=== PATIENT | female | born 1965 | race Caucasian/White ===

== ENCOUNTER 2016-09-12 08:49 | Inpatient (IN) | payer BC, OTHER ==
[~2016-09-12] VITALS: Ht 172.7 cm; Wt 126.0 kg
[~2016-09-12 08:49] MED LIST: LISI20TA55 PO; OXYC-57 PO; PANT40TA PO
[2016-09-12] MEDS ORDERED: DILTIAZEM HCL 5 MG/ML 5 ML VIAL IV STA ×2 (09:15→09:36)
[2016-09-12] MEDS ORDERED: DILTIAZEM BOLUS / DRIP IV STA (09:15)
[2016-09-12] MEDS ORDERED: ONDANSETRON INJ 2 MG/ML 2 ML VIAL IV STA (09:15)
[2016-09-12] MEDS ORDERED: SODIUM CHLORIDE 0.9% 1000ML 1,000 ML IV STA (09:15)
[2016-09-12] MEDS ORDERED: ADENOSINE IV SOLN 3 MG/ML 2 ML VIAL ONE (09:18)
[2016-09-12] MEDS ORDERED: ONDANSETRON INJ 2 MG/ML 2 ML VIAL ONE (09:19)
[2016-09-12] MEDS ORDERED: DILTIAZEM HCL INJ 125 MG in DEXTROSE 5% 100ML IV PRN (09:30)
[2016-09-12 09:32] LABS: HEMATOCRIT 44.6 % (37-47); MEAN CORPUSCULAR HEMOGLOBIN 30.3 pg (25-34); MEAN CORPUSCULAR HGB CONC 35.7 g/dl (32-36); MEAN PLATELET VOLUME 11.5 fL (7.4-10.4); PLATELET COUNT 110 K/uL (130-400); RED BLOOD COUNT 5.25 M/uL (4.2-5.4)
[2016-09-12 09:42] LABS: PARTIAL THROMBOPLASTIN RATIO 0.9; PROTHROMBIN TIME (PATIENT) 10.5 SECONDS (9.0-12.0)
[2016-09-12 09:50] LABS: BUN/CREATININE RATIO 13.4 (10-20); CALCIUM 8.4 mg/dl (8.5-10.1); POTASSIUM 2.7 mmol/L (3.5-5.1)
[2016-09-12 09:58] LABS: BASO ABS # 0.05 K/uL (0-0.2); BASOPHIL % 0.9 %; COMPLETE YES; EOSINOPHIL % 5.3 %; LYMPH ABS # 0.86 K/uL (1.2-3.4); NEUTROPHILS % 39.9 %; VARIANT LYM ABS # 1.97 K/uL; VARIANT LYMPHOCYTE % 34.5 %
--- NOTE | 2016-09-12 09:59 | DIAGNOSTIC IMAGING REPORT ---
CHEST ONE VIEW PORTABLE CLINICAL HISTORY: CHEST PAIN dyspnea COMPARISON STUDY: 06/26/2011 FINDINGS: Lungs are clear. Diaphragms smooth. No evidence for cardiac enlargement. IMPRESSION: Negative chest. Electronically signed by: Man Scott M.D. 09/12/2016 9:58 AM Dictated Date/Time: 09/12/2016 9:58 AM
[2016-09-12 10:10] LABS: CKMB/CK RATIO 0.4 (0-3.0); THYROID STIMULATING HORMONE 1.06 uIu/ml (0.300-4.500)
[2016-09-12] MEDS ORDERED: ASPIRIN 81 MG CHEW PO STA (10:15)
[2016-09-12] MEDS ORDERED: ALUMINUM/MAGNESIUM/SIMETH (MAALOX MAX) 30 ML UDC PO PRN (10:30)
[2016-09-12] MEDS ORDERED: METOPROLOL TARTRATE 1 MG/ML VIAL IV PRN (10:30)
[2016-09-12 10:50] LABS: MANUAL MICROSCOPIC REQUIRED? NO; URINE APPEARANCE CLEAR (CLEAR); URINE BILIRUBIN NEG (NEG); URINE COLOR YELLOW; URINE NITRITE NEG (NEG); URINE PH 7.5 (4.5-7.5); UROBILINOGEN NEG (NEG)
[2016-09-12] MEDS ORDERED: MAGNESIUM SULFATE 1GM / D5W 1 GM BAG IV SCH (11:00)
[2016-09-12] MEDS ORDERED: LORAZEPAM 0.5 MG TAB PO PRN (11:00)
[2016-09-12] MEDS ORDERED: MAGNESIUM SULFATE 1GM / D5W 1 GM in PREMIXED IN D5W 100 ML IV SCH (11:00)
[2016-09-12 11:01] VITALS: O2SAT 97; Ht 172.7 cm; Wt 126.0 kg
[2016-09-12 11:02] LABS: SULFASALICYLIC ACID NEG (NEG)
[2016-09-12 11:03] LABS: REVIEW REQ? NO
[2016-09-12 11:07] VITALS: O2SAT 98
[2016-09-12 11:14] LABS: ESTIMATED AVERAGE GLUCOSE 100 mg/dl; HA1C FLAG Normal (Normal)
--- NOTE | 2016-09-12 11:19 | EMERGENCY ROOM VISIT NOTE ---
History First contact with patient: 09:03 Chief Complaint: DIZZY Stated Complaint: DIZZY, VOMITING, CHILLS/SWEATS Nursing Triage Summary: pt here with dizziness, nausea, chills since this am. worse with movement. History of Present Illness The patient is a 50 year old female who presents to the Emergency Room with complaints of sudden onset of dizziness, nausea, chills and sweats. The patient 's symptoms developed while she was driving to work this morning. Patient reports that she had to pull off of the road because of the symptoms. The patient did not notice any chest tightness, shortness of breath, back pain, neck pain or headache. The patient has never had any similar episodes in the past. She does report having some generalized chest discomfort last week that lasted approximately 4 hours then resolved. She denies any cardiopulmonary history or thyroid disease. Patient does have a history of hypertension and takes hydrochlorothiazide Her father does have a history of coronary artery disease. The patient denies any recent illness. Review of Systems HEENT: Denies visual problems, hearing loss, tinnitus. Denies difficulty swallowing or oral lesions. PULMONARY: Denies cough, shortness of breath, sputum production or hemoptysis. CARDIOVASCULAR: Denies chest pain, palpitations, dyspnea on exertion, orthopnea or peripheral edema. GASTROINTESTINAL: Denies diarrhea, constipation, nausea, vomiting, or abdominal pain. GENITOURINARY: Denies dysuria, frequency, urgency or nocturia. NEUROLOGIC: Denies history of epilepsy, CVA, TIA or chronic headaches. MUSCULOSKELETAL: Denies history of joint tenderness/swelling. SKIN: Denies rashes or lesions. PSYCHIATRIC: Denies history of depression or mental illness. ENDOCRINE: Denies history of diabetes or thyroid disorders. Past Medical/Surgical History Medical Problems: (1) Abdominal hysterectomy (2) Atrial fibrillation with RVR (3) Menorrhagia (4) Salpingo-oophorectomy Social History Smoking Status: Former Smoker Alcohol Use: none Drug Use: none Marital Status: Occupation Status: employed Current/Historical Medications Scheduled Lisinopril/Hctz (Prinzide 20-25MG), 1 TAB PO DAILY Pantoprazole (Protonix), 40 MG PO DAILY Scheduled PRN Oxycodone/Acetaminophen 5MG/325MG (Percocet 5MG/325MG), 1-2 TAB PO Q4-6HR PRN PRN Allergies Coded Allergies: Penicillins (Verified Allergy, Intermediate, 09/12/16) Physical Exam Vital Signs Date Time Temp Pulse Resp B/P Pulse Ox O2 Delivery O2 Flow Rate FiO2 09/12/16 10:21 66 09/12/16 09:58 71 09/12/16 09:27 120 18 185/141 97 Room Air 09/12/16 09:20 97 Nasal Cannula 2.0 09/12/16 09:19 137 20 215/178 97 Nasal Cannula 2.0 09/12/16 09:15 150 09/12/16 09:10 97 Nasal Cannula 2.0 09/12/16 08:54 36.5 69 18 211/112 97 Room Air Physical Exam CONSTITUTIONAL: Obese female, alert and oriented X 3. The patient is sitting in the bed with her eyes shut. She is mildly diaphoretic. HEENT: Normocephalic, atraumatic. Pupils equal, round and reactive. Ears and nares are clear. OROPHARYNX: Tongue is midline. No tonsillar hypertrophy or exudates. NECK: Full active range of motion without discomfort. No JVD or carotid bruits. RESPIRATORY: Clear to auscultation bilaterally with no wheezing, crackles, rhonchi or stridor. CARDIOVASCULAR: Tachycardic with no appreciable murmurs, rubs or gallops. GASTROINTESTINAL: Bowel sounds present in all quadrants. Abdomen is soft and nontender to palpation. No hepatosplenomegaly. Negative CVA tenderness. MUSCULOSKELETAL: Full range of motion of all joints without discomfort. INTEGUMENTARY: No rash or other significant dermatologic conditions noted. HEMATOLOGIC: No ecchymosis or petechiae noted. NEUROLOGIC: Cranial nerves II-XII grossly intact. No focal neurologic deficits noted. Medical Decision & Procedures ER Provider Diagnostic Interpretation: My interpretation of an initial ECG shows a possible atrial fibrillation with rapid ventricular response at 152 bpm. She also has ST depression in inferior and anterolateral leads. Repeat ECG approximately 50 minutes later showed a conversion to a normal sinus rhythm of 64 bpm. She still has some mild ST depression fear and anterolateral leads with inverted T waves. Prolonged QT is also noted. No prior ECGs are available for comparison. My interpretation of a portable chest x-ray does not show any consolidations, pneumothorax, widened mediastinum or obvious cardiomegaly. Radiologist report is as follows: CHEST ONE VIEW PORTABLE CLINICAL HISTORY: CHEST PAIN dyspnea COMPARISON STUDY: 06/26/2011 FINDINGS: Lungs are clear. Diaphragms smooth. No evidence for cardiac enlargement. IMPRESSION: Negative chest. Laboratory Results 09/12/16 09:16 Red Blood Count 5.25, Mean Corpuscular Volume 85.0, Mean Corpuscular Hemoglobin 30.3, Mean Corpuscular Hemoglobin Concent 35.7, Mean Platelet Volume 11.5 09/12/16 09:16 Test 09/12/16 09:16 09/12/16 09:17 09/12/16 10:20 White Blood Count 5.70 K/uL (4.8-10.8) Red Blood Count 5.25 M/uL (4.2-5.4) Hemoglobin 15.9 g/dL (12.0-16.0) Hematocrit 44.6 % (37-47) Mean Corpuscular Volume 85.0 fL (80-100) Mean Corpuscular Hemoglobin 30.3 pg (25-34) Mean Corpuscular Hemoglobin Concent 35.7 g/dl (32-36) Platelet Count 110 K/uL (130-400) Mean Platelet Volume 11.5 fL (7.4-10.4) RDW Standard Deviation 39.1 fL (36.4-46.3) RDW Coefficient of Variation 12.7 % (11.5-14.5) Neutrophils % (Manual) 39.9 % Lymphocytes % (Manual) 15.0 % Variant Lymphocytes % (manual) 34.5 % Monocytes % (Manual) 4.4 % Eosinophils % (Manual) 5.3 % Basophils % (Manual) 0.9 % Neutrophils # (Manual) 2.27 K/uL (1.4-6.5) Total Absolute Neutrophils 2.27 K/uL (1.4-6.5) Lymphocytes # (Manual) 0.86 K/uL (1.2-3.4) Absolute Variant Lymphocytes 1.97 K/uL Total Absolute Lymphocytes 2.82 K/uL (1.2-3.4) Monocytes # (Manual) 0.25 K/uL (0.11-0.59) Eosinophils # (Manual) 0.30 K/uL (0-0.5) Basophils # (Manual) 0.05 K/uL (0-0.2) Red Blood Cell Morphology Unremarkable Prothrombin Time 10.5 SECONDS (9.0-12.0) Prothromb Time International Ratio 1.0 (0.9-1.1) Activated Partial Thromboplast Time 23.5 SECONDS (21.0-31.0) Partial Thromboplastin Ratio 0.9 Anion Gap 13.0 mmol/L (3-11) Est Creatinine Clear Calc Drug Dose 97.2 ml/min Estimated GFR () 77.2 Estimated GFR (Non- 66.6 BUN/Creatinine Ratio 13.4 (10-20) Calcium Level 8.4 mg/dl (8.5-10.1) Magnesium Level 2.0 mg/dl (1.8-2.4) Total Bilirubin 3.5 mg/dl (0.2-1) Direct Bilirubin 0.4 mg/dl (0-0.2) Aspartate Amino Transf (AST/SGOT) 31 U/L (15-37) Alanine Aminotransferase (ALT/SGPT) 38 U/L (12-78) Alkaline Phosphatase 45 U/L (45-117) Total Creatine Kinase 691 U/L (26-192) Creatine Kinase MB 2.6 ng/ml (0.5-3.6) Creatine Kinase MB Ratio 0.4 (0-3.0) Troponin I < 0.015 ng/ml (0-0.045) Total Protein 7.2 gm/dl (6.4-8.2) Albumin 4.3 gm/dl (3.4-5.0) Lipase 133 U/L (73-393) Thyroid Stimulating Hormone (TSH) 1.060 uIu/ml (0.300-4.500) Bedside D-Dimer 76 ng/mlFEU (0-450) Bedside Troponin I 0.000 ng/ml (0-0.045) DK-Znp-Y-Type Natriuretic Peptide 30 pg/ml (0-450) Urine Color YELLOW Urine Appearance CLEAR (CLEAR) Urine pH 7.5 (4.5-7.5) Urine Specific [place] 1.020 (1.000-1.030) Urine Protein NEG (NEG) Urine Glucose (UA) 1+ (NEG) Urine Ketones TRACE (NEG) Urine Occult Blood NEG (NEG) Urine Nitrite NEG (NEG) Urine Bilirubin NEG (NEG) Urine Urobilinogen NEG (NEG) Urine Leukocyte Esterase NEG (NEG) The above labs were reviewed. Potassium is 2.7. The patient is not anemic. There is no leukocytosis. Initial coagulation studies are normal. Point of care d-dimer, troponin and BNP are also normal. TSH is normal. Urinalysis shows no evidence for infection. Urine drug screen was pending at the time of dictation. Medications Administered Medications (Trade) Dose Ordered Sig/Sharon Route Start Time Stop Time Status Last Admin Dose Admin Ondansetron HCl 4 mg 4 mg STK-MED ONCE .ROUTE 09/12/16 09:19 09/12/16 09:20 DC 09/12/16 09:17 4 MG Sodium Chloride (Nss 1000ml) 1,000 ml @ 999 mls/hr Q1H1M STAT IV 09/12/16 09:15 09/12/16 10:15 DC 09/12/16 09:15 999 MLS/HR Diltiazem HCl (Cardizem Inj) 10 mg NOW STAT IV 09/12/16 09:15 09/12/16 09:18 DC 09/12/16 09:23 10 MG Diltiazem HCl (Cardizem Inj) 20 mg NOW STAT IV 09/12/16 09:36 09/12/16 09:38 DC 09/12/16 09:45 20 MG ED Course Patient history and physical exam were performed. Nurse's notes were reviewed. Initial last signs were reviewed, showing a blood pressure of 211/112. O2 saturation is 97% on room air. Her initial pulse rate was in the 160s upon my presentation. My interpretation of an ECG shows a possible atrial fibrillation with rapid ventricular response. She also has some ST depression in inferior and anterolateral leads. ECG was initially reviewed with Dr. Wheeler, ED attending physician, who suggested treatment for atrial fibrillation. IV access was immediately established, and labs were drawn. The patient was hydrated with a liter normal saline. She was initially given Cardizem 20 mg slow IV push with a slight decrease of her heart rate and blood pressure. She was then administered an additional Cardizem 20 mg slow IV push, and converted to a normal sinus rhythm. Her blood pressure continued to remain elevated. The patient reported that her symptoms were improving. Labs were reviewed to show a moderate hypokalemia with a potassium of 2.7. Remaining labs are otherwise normal. It is noted that her point of care troponin, d-dimer and BNP were also normal. A repeat ECG still showed concerns for ischemic changes. Patient was administered aspirin [address] Wheeler agreed that hospitalist evaluation was warranted. The case was then further discussed with the [facility] hospitalist service. Please see their dictation for further treatment and final disposition. Medical Decision Patient presents with abrupt onset of symptoms concerning for cardiopulmonary etiology. Her ECG reveals an atrophic relation with rapid ventricular response. She spotted nicely to Cardizem IV push. She did not require a Cardizem drip. The patient does have a Ronak score of 1 given her history of hypertension. The patient was administered aspirin while in the emergency department. With her abnormal ECG, I do feel that further cardiology workup and telemetry with repeat serial cardiac isoenzymes will be necessary. The patient does not have any lab work that would suggest infectious etiology. She is euthyroid. She is not anemic. Urinalysis is not suggestive of infection. Urine drug screen is currently pending to rule out stimulant cause of her symptoms. Impression Primary Impression: Atrial fibrillation with RVR Additional Impression: Hypertension Departure Information Referrals Jeannette Parks D.O. (PCP) Forms HOME CARE DOCUMENTATION FORM, IMPORTANT VISIT INFORMATION Patient Instructions [facility] Problem Qualifiers
[2016-09-12 11:31] LABS: BENZODIAZEPINE, URINE NEG (NEG); COCAINE,URINE NEG (NEG); PHENCYCLIDINE, URINE NEG (NEG)
--- NOTE | 2016-09-12 11:38 | HISTORY & PHYSICAL EXAMINATION ---
DATE OF ADMISSION: 09/12/2016 CHIEF COMPLAINT: Dizziness. ADMITTING DIAGNOSES: Atrial fibrillation, rapid ventricular response. HISTORY OF PRESENT ILLNESS: Ms. Nick is a 50-year-old female presented with episodes of dizziness while driving from dropping her son off to her work. She typically works at [employer] in [employer] department. The patient has stopped twice on the way to work because she felt too dizzy to drive. When her picked her up, she felt nauseous and almost threw up in the back seat of the car. When the patient arrived in the ER, she was in atrial fibrillation and RVR. Initially it was a narrow complex tachyarrhythmia and adenosine was administered. This did not seem to quell the arrhythmia and she was given diltiazem bolus of 40 reporting to the ER doctor, which converted her back to sinus rhythm. Her initial evaluation, she was found to be hypokalemic with potassium of 2.7 and magnesium is currently pending. She was not hyperthyroid. She has elevated bilirubin but a history of Gilbert's and she has an elevated glucose 185. The patient denies excessive stimulant use. Does not take any over the counter medicines except for Ocuvite and glutamine. She denies any drug use. She is on a combination antihypertensive diuretic which may explain her hyperkalemia. She is amenable to admission. She currently is without discomfort in sinus rhythm in the 60s and 70s, although she has some residual lateral T-wave inversions seen on her EKG after conversion to sinus rhythm. PAST MEDICAL HISTORY: For total abdominal hysterectomy in 2011, hypertension, GERD, previous history of Gilbert's disease. MEDICATIONS: Prinzide 20/25 once a day, Protonix daily, Ocuvite and glutamine. SOCIAL HISTORY: She quit smoking in 2011. Does not drink alcohol. Works for [employer]. She has 2 children. FAMILY HISTORY: Positive for coronary disease in his father who had a stent in his late 50s, breast cancer. She has diabetes in her grandparents. She, however herself, did have gestational diabetes which does place her at risk for diabetes. REVIEW OF SYSTEMS: Ten systems were reviewed and are negative. The patient does urinate a lot but blames it on the water pill, part of her antihypertensives. PHYSICAL EXAMINATION: GENERAL: She is a pleasant female. She is morbidly obese with a BMI of 42.9. HEAD, EYES, EARS, NOSE, AND THROAT: PERRL, EOMI. Her conjunctivae are not icteric. Oropharynx is clear. NECK: Without lymphadenopathy, JVD. Trachea midline. HEART: Regular without murmurs, clicks, rubs or gallops. LUNGS: Clear without wheezes or crackles. ABDOMEN: Normoactive bowel sounds, soft, nontender, no abdominal bruits. EXTREMITIES: Without cyanosis, clubbing or edema. SKIN EXAMINATION: Without lesions, growths, bruises or bleeding. NEUROLOGICALLY: She is awake, alert and appropriate. Cranial nerves II-XII are intact. Equal symmetrical strength and sensation in upper and lower extremities. VITAL SIGNS: Her temperature is 36.5. Her heart rate now is 66. Her respiration rate 18, BP is elevated at 185/141, O2 sats 97 on room air. LABORATORY DATA: White count of 5, H\T\H 15 and 44, platelet count 110, BUN and creatinine 13 and 1.0. Potassium 2.7, magnesium pending. Glucose 185, bili 3.5. TSH is normal. Her initial cardiac enzymes, her troponin is currently pending but the point of care was 0. Her total CK was slightly up at 691. She has a pending A1c and toxicology panel. Her chest x-ray is unremarkable. Her EKG initially showed narrow complex irregular heart rhythm with tachyarrhythmia. Her post-conversion shows lateral T-wave inversions but sinus rhythm. ASSESSMENT: A 50-year-old female with atrial fibrillation, rapid ventricular response. She did have a little chest discomfort 1 week prior. PLAN: The patient will be put on telemetry unit. Serial enzymes will be undertaken. With her hypertension we will add metoprolol for blood pressure control, add tartrate 25 b.i.d. Echocardiogram will be obtained to look for structural heart disease. Her magnesium will be repleted and a cardiology consult will be undertaken the carlos to determine how to proceed forward, although she has a KIRSTEN score of 1. Hypokalemia will be repleted, could be the hydrochlorothiazide in her diuretic. This will be held and magnesium will be followed. Regarding her Gilbert's disease, at one point in time she was discussed about having fatty liver. She is morbidly obese. Will check a lipid panel for risk stratification of coronary artery disease. Regarding her elevated blood glucose on presentation, hemoglobin A1c will be checked to determine if she is glucose intolerance or does quality for diabetes. Because of discomfort last week and her family history of heart disease, cardiology will help determine if her risk stratification method needs to be employed prior to her leaving the hospital. Deep venous thrombosis prevention is early ambulation.
[2016-09-12 11:50] LABS: ZZUR CULT IF INDIC CLEAN CATCH NO
[2016-09-12] MEDS: POTASSIUM CHLORIDE 10 MEQ / 100ML WTR IV SCH ×3 (12:00→13:00)
[2016-09-12 12:18] VITALS: BP 177/87; PULSE 62; TEMP 36.5; O2SAT 97
[2016-09-12] MEDS: LISINOPRIL 20 MG TAB PO SCH (13:30)
[2016-09-12] MEDS: METOPROLOL TARTRATE 25 MG TAB PO SCH ×2 (13:31→20:39)
[2016-09-12] MEDS: POTASSIUM CHLORIDE INJ 40 MEQ in SODIUM CHLORIDE 0.9% 1000ML 1,000 ML IV SCH ×2 (13:31→20:39)
[2016-09-12] MEDS: POTASSIUM CHLR 10 MEQ / WTR 10 MEQ in PREMIXED WATER 100 ML IV SCH ×2 (13:33→14:56)
[2016-09-12 15:20] VITALS: BP 151/87; PULSE 61; TEMP 37.2; O2SAT 96
--- NOTE | 2016-09-12 16:25 | ECHOCARDIOGRAM REPORT ---
*NOTICE TO RECEIVING [employer] This information is strictly Confidential and protected under [place] law. [place] law prohibits you from making any further disclosure of this information unless further disclosure is expressly permitted by the written consent of the person to whom it pertains or is authorized by law. A general authorization for the release of medical or other information is not sufficient for this purpose. Hospital accepts no responsibility if the information is made available to any other person, INCLUDING THE PATIENT. Interpretation Summary * Name: NETTE ARREGUIN Study Date: 09/12/2016 12:50 PM BP: 177/87 mmHg * Patient Location: [facility] HR: 62 * : 1965 (M/d/yyyy) Gender: Female Height: 67 in * Age: 50 yrs Ethnicity: CA Weight: 282 lb * Ordering Physician: Dre Miramontes * Performed By: Kathleen Huber RDCS * * Reason For Study: Atrial fibrillation * BSA: 2.3 m2 * Normal biventricular systolic function. * Moderate concentric left ventricular hypertrophy. * Left ventricular diastolic dysfunction. * Mild left atrial dilatation. * Trace tricuspid and pulmonic regurgitation. Procedure Details * A complete two-dimensional transthoracic echocardiogram was performed (2D, M-mode, Doppler and color flow Doppler). Left Ventricle * The left ventricle is normal in size. * There is moderate concentric left ventricular hypertrophy. * Ejection Fraction = 65-70%. * Left ventricular systolic function is normal. * A full diastolic examination was done with clinical findings of Class I diastolic dysfunction. * The left ventricular wall motion is normal. Right Ventricle * The right ventricle is normal in size and function. * The right ventricular systolic function is normal as assessed by tricuspid annular plane systolic excursion (TAPSE) (normal >1.5 cm). Atria * The left atrium is mildly dilated. * Right atrial size is normal. Mitral Valve * The mitral valve is normal. * There is no mitral valve stenosis. * There is no mitral regurgitation noted. Tricuspid Valve * The tricuspid valve is normal. * There is no tricuspid stenosis. * There is trace tricuspid regurgitation. Aortic Valve * The aortic valve opens well. * The aortic valve is trileaflet. * Aortic stenosis is absent. * No aortic regurgitation is present. Pulmonic Valve * The pulmonic valve is not well seen, but is grossly normal. * The pulmonary valve is inadequately visualized, but the Doppler data is adequate for interpretation. * There is no pulmonic valvular stenosis. * Trace pulmonic valvular regurgitation. Great Vessels * The aortic root is normal size. Pericardium/Pleural * There is no pericardial effusion. Great Vessels * Normal inferior vena cava diameter and respiratory variation suggests normal central venous pressure. MMode 2D Measurements and Calculations IVSd 1.6 cm IVSs 1.9 cm LVIDd 4.5 cm LVIDs 2.9 cm LVPWd 1.5 cm LVPWs 1.9 cm IVS/LVPW 1.1 FS 36.6 % EDV(Teich) 94.1 ml ESV(Teich) 31.5 ml EF(Teich) 66.5 % EDV(cubed) 93.3 ml ESV(cubed) 23.8 ml EF(cubed) 74.5 % % IVS thick 16.0 % % LVPW thick 32.7 % LV mass(C)d 291.4 grams LV mass(C)dI 124.5 grams/m\S\2 LV mass(C)s 230.9 grams LV mass(C)sI 98.7 grams/m\S\2 CO(Teich) 3.1 l/min CI(Teich) 1.3 l/min/m\S\2 SV(Teich) 62.6 ml SI(Teich) 26.7 ml/m\S\2 CO(cubed) 3.5 l/min CI(cubed) 1.5 l/min/m\S\2 SV(cubed) 69.5 ml SI(cubed) 29.7 ml/m\S\2 Ao root diam 3.6 cm Ao root area 10.0 cm\S\2 ACS 2.4 cm LA dimension 4.4 cm asc Aorta Diam 3.6 cm LA/Ao 1.2 LVOT diam 2.2 cm LVOT area 3.7 cm\S\2 LVAd ap4 38.4 cm\S\2 LVLd ap4 9.3 cm EDV(MOD-sp4) 130.0 ml LVAs ap4 18.8 cm\S\2 LVLs ap4 6.8 cm ESV(MOD-sp4) 43.2 ml EF(MOD-sp4) 66.8 % LVAd ap2 31.6 cm\S\2 LVLd ap2 7.8 cm EDV(MOD-sp2) 106.0 ml LVAs ap2 15.4 cm\S\2 LVLs ap2 5.9 cm ESV(MOD-sp2) 34.8 ml EF(MOD-sp2) 67.2 % CO(MOD-sp4) 4.3 l/min CI(MOD-sp4) 1.9 l/min/m\S\2 SV(MOD-sp4) 86.8 ml SI(MOD-sp4) 37.1 ml/m\S\2 CO(MOD-sp2) 3.6 l/min CI(MOD-sp2) 1.5 l/min/m\S\2 SV(MOD-sp2) 71.2 ml SI(MOD-sp2) 30.4 ml/m\S\2 Doppler Measurements and Calculations MV E max david 72.4 cm/sec MV A max david 110.5 cm/sec MV E/A 0.66 MV P1/2t max david 93.0 cm/sec MV P1/2t 96.7 msec MVA(P1/2t) 2.3 cm\S\2 MV dec slope 281.7 cm/sec\S\2 MV dec time 0.27 sec Ao V2 max 128.6 cm/sec Ao max PG 6.6 mmHg Ao max PG (full) 1.2 mmHg MENA(V,A) 3.4 cm\S\2 MENA(V,D) 3.4 cm\S\2 LV V1 max PG 5.4 mmHg LV V1 max 116.3 cm/sec PA V2 max 95.6 cm/sec PA max PG 3.7 mmHg
[2016-09-12] MEDS: ONDANSETRON INJ 2 MG/ML 2 ML VIAL IV PRN (17:29)
[2016-09-12 19:05] VITALS: BP 169/84; PULSE 63; TEMP 36.6; O2SAT 97
[2016-09-12 23:10] VITALS: BP 177/94; PULSE 61; TEMP 36.4; O2SAT 96
[2016-09-13] VITALS (15 sets, daily range): BP systolic 115–194; BP diastolic 59–103; PULSE 62–81; TEMP 36.6–37.1; O2SAT 94–99
--- NOTE | 2016-09-13 00:32 | CARDIOLOGY CONSULTATION ---
DATE OF CONSULTATION: 09/12/2016 PRIMARY PHYSICIAN: Jeannette Parks DO ATTENDING AND REFERRING PHYSICIAN: Dre Miramontes MD CONSULTATION: Kenn Bryan MD HISTORY OF PRESENT ILLNESS: The patient is a 50-year-old white female. No prior history of any type of heart disease. She does have a history of hypertension, prior cigarette smoking, and gestational diabetes mellitus. One week ago she had approximately 4-1/2-hour episode of a left upper chest tightness sensation. Radiation into her left upper arm. She had no associated diaphoresis initially. No nausea or dyspnea. She did go to bed with the discomfort. When she went to bed, she did feel slightly diaphoretic. The discomfort spontaneously resolved. When she did have it, the intensity was not increased with exertion or deep breathing. She denies any prior history of such discomfort. She has had no further such discomfort since then. Her exercise tolerance and stamina have been stable. She exercises regularly. She has not noted any change in her exercise tolerance recently. This morning while driving to work, she had sudden onset of feeling lightheaded. This was worse with standing. This occurred when she stopped the car and got out to walk around. She thereafter developed nausea and vomiting. No chest tightness or arm discomfort. No dyspnea. She did have diaphoresis. She called her who then drove her to the Emergency Department. In the Emergency Department, she did have sensation of palpitations. She was found to have atrial fibrillation with rapid ventricular response on arrival to the Emergency Department. Her pulse rate was documented to be 150 beats per minute. An electrocardiogram performed on 9:10 a.m. showed a ventricular rate of 152 beats per minute. She was initially given intravenous adenosine for possible supraventricular tachycardia. This had no effect on her rhythm. She was thereafter given intravenous diltiazem. After receiving intravenous diltiazem, she did convert to sinus rhythm. Her symptoms then resolved within a few minutes. She was subsequently admitted to the telemetry unit. She had been started on metoprolol. She received 324 mg of chewable aspirin in the Emergency Department. She was also found to have hypokalemia. Her potassium level at 9:16 a.m. was 2.7. Her magnesium level was 2.0. She has since received potassium supplementation. Since arrival to the telemetry unit, she has had no further complaints of lightheadedness, nausea, or vomiting. No palpitations. Monitor history shows no further atrial fibrillation. She denies any history of thyroid disease. She does have a longstanding history of hypertension. No history of congestive heart failure, vascular disease, or CVA. She has 2 maternal aunts and 1 maternal uncle with atrial fibrillation. She does not know the age of which they developed atrial fibrillation. Father with CAD in his 50s. Occasional use of alcohol. No stimulant type medications. She does drink 1 or 2 cups of caffeinated coffee every morning. She denies any recent increased emotional and physical stress. No symptoms of GI fluid losses until the vomiting this morning. No bleeding complaints. No fevers or chills. No pulmonary or urinary complaints. No cerebrovascular or peripheral vascular complaints. As stated above, her exercise tolerance and stamina have recently been stable. No dyspnea at rest or with her normal activities. No orthopnea or PND. Normally, no palpitations. Normally, no lightheadedness. No syncope. No peripheral edema. No focal motor weakness. No focal neurologic symptoms. She does snore. Her has never noted her to have stopped breathing while she is sleeping. However, they frequently do not sleep in the same bedroom. PAST MEDICAL HISTORY: 1. Hypertension. 2. Gestational diabetes mellitus. 3. She denies history of dyslipidemia. 4. No history of CHF or CVA. 5. History of "fatty liver." 6. History of Gilbert's disease. 7. GE reflux disease. PAST SURGICAL HISTORY: 1. Status post some type of surgery at age 4. She has a scar in her upper sternal region. This is a horizontal scar. 2. Status post 2 sections. 3. Status post hysterectomy and removal of 1 ovary. SOCIAL HISTORY: The patient is and lives with her . She and her have 2 children. Two boys, aged 10 and 14. Occasional use of alcohol. She stopped smoking cigarettes in 2011. FAMILY HISTORY: Father had a coronary stent when he was in his late 50s. History of diabetes mellitus in her grandparents. MEDICATIONS AT TIME OF ADMISSION: Prinzide 20/25 one daily, Protonix daily, Ocuvite daily, glutamine daily. ALLERGIES: PENICILLINS. REVIEW OF SYSTEMS: A 10-point review of system is negative except for above. PHYSICAL EXAMINATION: GENERAL: The patient is lying in her bed, in no distress. Current monitor reveals sinus rhythm. VITAL SIGNS: Most recent vital signs with oral temperature 36.5, pulse 62, blood pressure 177/89, pulse oximetry 97% on room air. HEAD: Normal. EYES: Pupils equal and round. Anicteric. Conjunctivae normal. No xanthelasma. NECK: No jugular venous distention. No thyromegaly. No masses or adenopathy. Carotids 2/2 bilaterally. Normal upstroke. No bruits. LUNGS: Normal respiratory effort. Clear. No rales or wheezes. HEART: PMI not palpable. No lifts or heaves. Regular rate and rhythm. S1, S2 normal. No S3 or S4. No murmur or rub. ABDOMEN: Soft. Nontender. No palpable masses or organomegaly. No bruits. EXTREMITIES: No pretibial edema. PULSES: Distal pulses palpable bilaterally. No cyanosis or clubbing. NEUROLOGICAL: Alert and oriented x3. Motor grossly intact. PSYCHIATRIC: Affect is normal. DIAGNOSTIC DATA: Electrocardiogram on arrival to the Emergency Department revealed atrial fibrillation with ventricular rate [address] segment depressions in leads 1, aVL, V2-V6, consistent with ischemia. Electrocardiogram performed at 10:01 a.m. after conversion of sinus rhythm showed normal sinus rhythm at a rate of [address] segment depressions in 1 and aVL, V2-V6. T-wave inversions V3-V6. The ST segment depression is improved compared to the prior electrocardiogram. Slight ST depression in lead 2. Chest x-ray performed on arrival to the Emergency Department and reviewed by me shows normal heart size. No evidence of heart failure or infiltrate. LABORATORY DATA: Initial troponin I at 9:16 a.m. less than 0.015. Hemoglobin A1c 5.1. Pro-B natriuretic peptide 30. Metabolic profile with sodium 142, potassium 3.7, chloride 106, carbon dioxide 23, BUN 13, creatinine 1.00, random glucose 185. Total bilirubin 3.5. Direct bilirubin 0.4. AST 31. ALT 38. CK total 691. CK-MB 2.6, CK-MB ratio 0.4. Toxicology screen negative. Urinalysis with trace ketones and 1+ glucose. INR 1.0. PTT 23.5. CBC with WBC 5.70, hemoglobin 15.9, hematocrit 44.6, platelet count 110. Platelet count in 2011 was 109. Platelet count later in 2011 was 176. Platelet count in 2005 was 204, in 1999 was 258. TSH today is 1.060. ASSESSMENT: 1. Atrial fibrillation with rapid ventricular response this morning. Sudden onset of symptoms. The symptoms included weakness, lightheadedness, nausea, and vomiting. After arrival to the Emergency Department, she did feel palpitations. Spontaneous conversion to sinus rhythm. Although the diltiazem would help decrease the rate, it would not convert to rhythm on its own. Since conversion to sinus rhythm, no further atrial fibrillation. No prior history of any arrhythmias. No evidence of any significant valvular heart disease on exam. She did have a significantly decreased potassium level on admission. No recent gastrointestinal fluid losses until the vomiting associated with her atrial fibrillation. She does receive a diuretic which could have caused the hypokalemia. 2. Prolonged episode of chest tightness last week. This occurred at rest. The intensity is not increased with exertion. She did have radiation discomfort into her left upper arm. Coronary artery disease risk factors would include hypertension, prior smoking history, and family history of premature coronary artery disease. She herself denied to me that she had a family history of premature coronary disease. However, her father had a coronary artery stent procedure when he was in his 50s. She did not have any anginal type pains with her atrial fibrillation with rapid ventricular response today. However, she did have ST segment depressions, consistent with ischemia. Electrocardiogram performed following conversion to sinus rhythm continued to show ST segment depressions. However, they had markedly improved compared to the electrocardiogram when she was in atrial fibrillation with rapid ventricular response. Initial troponin I was normal. This was obtained on her arrival to the Emergency Department. 3. No evidence of heart failure on exam or chest x-ray. 4. Hypertension. 5. TSH normal. No history of thyroid disease. 6. Her CHADS2-VASc score is 2. Antithrombotic recommendation with this is oral anticoagulation. Her risk category stated to be at high risk for stroke. Yearly risk of stroke 2.2%. Her CHADS2 score is 1. This report a moderate risk of stroke. Yearly risk 2.8%. The recommendations with the score is to use the CHADS2-VASc score for further risk stratification in antithrombotic regimen. 7. Thrombocytopenia. Present back to 2011. RECOMMENDATIONS: 1. We will check echocardiogram. This was apparently performed already. Assess for any wall motion abnormalities. 2. Serial cardiac enzymes. We will repeat troponin I now. This will be approximately 8 hours since her symptom onset. 3. Continue aspirin. 4. Continue metoprolol. She was started on metoprolol 25 mg b.i.d. on admission. 5. Hold HCTZ. Continue lisinopril. If BP remains elevated,increase dose to 40 mg daily. 6. If she has any further atrial fibrillation while being monitored or if the troponin I's are elevated, would start intravenous heparin. 7. If her cardiac enzymes remain negative for myocardial injury, stress echocardiogram on September 13. If her cardiac enzymes are elevated, would need to consider cardiac catheterization. 8. Check lipid profile. This has been ordered. 9. Replete potassium. She is currently in the process of receiving potassium supplementation. 10. Monitor platelet count. Consider out patient hematology consult. Check lipid profile. Thank you for asking us to see this patient in cardiology consultation. HUONG
[2016-09-13 06:49] LABS: BUN/CREATININE RATIO 12.5 (10-20); CALCIUM 8.5 mg/dl (8.5-10.1); CHOLESTEROL/HDL RATIO 4.3; CREATININE 0.82 mg/dl (0.60-1.20); POTASSIUM 3.5 mmol/L (3.5-5.1)
[2016-09-13 07:30] LABS: HEMATOCRIT 42.3 % (37-47); MEAN CORPUSCULAR HEMOGLOBIN 31.5 pg (25-34); MEAN CORPUSCULAR HGB CONC 36.2 g/dl (32-36); MEAN PLATELET VOLUME 12.1 fL (7.4-10.4); PLATELET COUNT 109 K/uL (130-400); RED BLOOD COUNT 4.86 M/uL (4.2-5.4); WHITE BLOOD COUNT 7.99 K/uL (4.8-10.8)
[2016-09-13 07:31] LABS: PLT ESTIMATE DECREASED
--- NOTE | 2016-09-13 07:41 | Hospitalist Progress Note ---
Hospitalist Progress Note Date of Service Sep 13, 2016. Subjective Pt evaluation today including: conversation w/ patient, conversation w/ family , physical exam, chart review, lab review, review of studies, review of inpatient medication list Pain: None PO Intake: NPO Voiding: no voiding problems The patient was seen and examined this morning. Pt reports not feeling well right now. She just had hydralazine 20 mg administered. This is her second dose to attempt to control blood pressure this morning. She also got a total of lisinopril 40 mg this morning. Her beta nathaniel was held for stress test planned for this morning. She admits to feeling somewhat nauseous and is flushed in the face, pt is complaining of gas and abdominal bloating. She hasn' t eaten today and states she feels sick from not eating. Denies lightheadedness or dizziness. Her is present at bedside. Constitutional: No chills, No fever, No sweats Eyes: No diplopia, No redness ENT: No nasal symptoms, No trouble swallowing Respiratory: No cough, No sputum, No wheezing Cardiovascular: No chest pain, No palpitations Abdomen: + nausea, + pain, + problem reported (bloating), No constipation, No diarrhea, No vomiting Musculoskeletal: No joint pain, No muscle pain, No swelling Psychiatric: + anxiety Endo: No fatigue Skin: No itch, No rash Objective Vital Signs Date Time Temp Pulse Resp B/P Pulse Ox O2 Delivery O2 Flow Rate FiO2 09/13/16 04:00 Room Air 09/13/16 03:00 37.0 62 18 171/85 99 Room Air 09/13/16 00:00 Room Air 09/12/16 23:10 36.4 61 18 177/94 96 Room Air 09/12/16 20:00 Room Air 09/12/16 19:05 36.6 63 18 169/84 97 Room Air 09/12/16 16:00 Room Air 09/12/16 15:20 37.2 61 18 151/87 96 Room Air 09/12/16 12:18 36.5 62 18 177/87 97 Room Air 09/12/16 12:00 Room Air 09/12/16 11:07 64 18 155/95 98 Room Air 09/12/16 11:01 97 Room Air 09/12/16 10:21 66 09/12/16 09:58 71 09/12/16 09:27 120 18 185/141 97 Room Air 09/12/16 09:20 97 Nasal Cannula 2.0 09/12/16 09:19 137 20 215/178 97 Nasal Cannula 2.0 09/12/16 09:15 150 09/12/16 09:10 97 Nasal Cannula 2.0 09/12/16 08:54 36.5 69 18 211/112 97 Room Air Physical Exam General Appearance: + mild distress, + obese, + pertinent finding (face is flushed) Eyes: PERRL, EOMI ENT: hearing grossly normal, pharynx normal Neck: no adenopathy, no JVD Respiratory/Chest: lungs clear, no respiratory distress, no accessory muscle use Cardiovascular: regular rate, rhythm, no murmur Abdomen: normal bowel sounds, non tender, soft Extremities: non-tender, no pedal edema, no calf tenderness Neurologic/Psychiatric: alert, oriented x 3, + pertinent finding Skin: warm/dry Laboratory Results Last 24 Hours Test 09/12/16 09:16 09/12/16 09:17 09/12/16 10:20 09/12/16 15:30 White Blood Count 5.70 K/uL Red Blood Count 5.25 M/uL Hemoglobin 15.9 g/dL Hematocrit 44.6 % Mean Corpuscular Volume 85.0 fL Mean Corpuscular Hemoglobin 30.3 pg Mean Corpuscular Hemoglobin Concent 35.7 g/dl Platelet Count 110 K/uL Mean Platelet Volume 11.5 fL RDW Standard Deviation 39.1 fL RDW Coefficient of Variation 12.7 % Neutrophils % (Manual) 39.9 % Lymphocytes % (Manual) 15.0 % Variant Lymphocytes % (manual) 34.5 % Monocytes % (Manual) 4.4 % Eosinophils % (Manual) 5.3 % Basophils % (Manual) 0.9 % Neutrophils # (Manual) 2.27 K/uL Total Absolute Neutrophils 2.27 K/uL Lymphocytes # (Manual) 0.86 K/uL Absolute Variant Lymphocytes 1.97 K/uL Total Absolute Lymphocytes 2.82 K/uL Monocytes # (Manual) 0.25 K/uL Eosinophils # (Manual) 0.30 K/uL Basophils # (Manual) 0.05 K/uL Red Blood Cell Morphology Unremarkable Prothrombin Time 10.5 SECONDS Prothromb Time International Ratio 1.0 Activated Partial Thromboplast Time 23.5 SECONDS Partial Thromboplastin Ratio 0.9 Sodium Level 142 mmol/L Potassium Level 2.7 mmol/L Chloride Level 106 mmol/L Carbon Dioxide Level 23 mmol/L Anion Gap 13.0 mmol/L Blood Urea Nitrogen 13 mg/dl Creatinine 1.00 mg/dl Est Creatinine Clear Calc Drug Dose 97.2 ml/min Estimated GFR () 77.2 Estimated GFR (Non- 66.6 BUN/Creatinine Ratio 13.4 Random Glucose 185 mg/dl Estimated Average Glucose 100 mg/dl Hemoglobin A1c 5.1 % Calcium Level 8.4 mg/dl Magnesium Level 2.0 mg/dl Total Bilirubin 3.5 mg/dl Direct Bilirubin 0.4 mg/dl Aspartate Amino Transf (AST/SGOT) 31 U/L Alanine Aminotransferase (ALT/SGPT) 38 U/L Alkaline Phosphatase 45 U/L Total Creatine Kinase 691 U/L Creatine Kinase MB 2.6 ng/ml Creatine Kinase MB Ratio 0.4 Troponin I < 0.015 ng/ml < 0.015 ng/ml Total Protein 7.2 gm/dl Albumin 4.3 gm/dl Lipase 133 U/L Thyroid Stimulating Hormone (TSH) 1.060 uIu/ml Bedside D-Dimer 76 ng/mlFEU Bedside Troponin I 0.000 ng/ml XI-Fpi-T-Type Natriuretic Peptide 30 pg/ml Urine Color YELLOW Urine Appearance CLEAR Urine pH 7.5 Urine Specific [place] 1.020 Urine Protein NEG Urine Glucose (UA) 1+ Urine Ketones TRACE Urine Occult Blood NEG Urine Nitrite NEG Urine Bilirubin NEG Urine Urobilinogen NEG Urine Leukocyte Esterase NEG Urine Opiates Screen NEG Urine Methadone, Qualitative NEG Urine Barbiturates NEG Urine Phencyclidine (PCP) Level NEG Ur Amphetamine/Methamphetamine NEG MDMA (Ecstasy) Screen NEG Urine Benzodiazepines Screen NEG Urine Cocaine Metabolite NEG Urine Marijuana (THC) NEG Test 09/13/16 00:55 09/13/16 05:30 09/13/16 05:31 Troponin I < 0.015 ng/ml Sodium Level 146 mmol/L Potassium Level 3.5 mmol/L Chloride Level 114 mmol/L Carbon Dioxide Level 24 mmol/L Anion Gap 8.0 mmol/L Blood Urea Nitrogen 10 mg/dl Creatinine 0.82 mg/dl Est Creatinine Clear Calc Drug Dose 117.7 ml/min Estimated GFR () 98.1 Estimated GFR (Non- 84.6 BUN/Creatinine Ratio 12.5 Random Glucose 107 mg/dl Calcium Level 8.5 mg/dl Total Bilirubin 3.7 mg/dl Triglycerides Level 112 mg/dl Cholesterol Level 200 mg/dl HDL Cholesterol 47 mg/dl LDL Cholesterol, Calculated 131 mg/dl VLDL Cholesterol, Calculated 22 mg/dl Cholesterol/HDL Ratio 4.3 White Blood Count 7.99 K/uL Red Blood Count 4.86 M/uL Hemoglobin 15.3 g/dL Hematocrit 42.3 % Mean Corpuscular Volume 87.0 fL Mean Corpuscular Hemoglobin 31.5 pg Mean Corpuscular Hemoglobin Concent 36.2 g/dl RDW Standard Deviation 41.8 fL RDW Coefficient of Variation 13.1 % Platelet Count 109 K/uL Mean Platelet Volume 12.1 fL Platelet Estimate DECREASED Assessment and Plan This is a 50 yo F with PMHx HTN, gilberts disease, obesity, presenting after episode of dizziness and vomiting presenting in new onset afib with RVR. Atrial Fibrillation with RVR - Adenosine and diltiazem administered in the ED upon arrival with conversion back into NSR. - Cardiology consulted - appreciate recs - metoprolol 25 mg BID started here - held this morning for stress test - Cardiac markers x 3 are normal so will plan for a stress test later today per cardiology - TTE completed already, showing LVH, right atrial enlargement. - Discussed with cards: Pt will need something more than lisinopril and metoprolol for rate control, likely a calcium channel nathaniel like verapamil or diltiazem. If she is placed on medication such as diltiazem, she will likely not know she is in afib next time it occurs. With the findings on her ECHO as above, and hx of uncontrolled HTN, she has higher possibility of afib in the future. CHADs score is 2. Discussion will need to be held regarding anticoagulation. Also would consider starting the pt on a statin, although this can be decided as an outpatient. - Lipids mildly elevated, LDL is elevated, and HDL is low although her total cholesterol is borderline - A1C = 5.1 Hypokalemia - resolved - Holding HCTZ as this may have precipitated some fluid loss, and certainly hypokalemia with admission being 2.7. Potassium has been replaced and is currently 3.5. [place] Syndrome - Chronic DVT ppx: OOB Disposition: From home, stress test today, dc likely within 1 day
[2016-09-13] MEDS: ASPIRIN 81 MG ECTAB PO SCH (07:51)
[2016-09-13] MEDS: LISINOPRIL 20 MG TAB PO SCH (07:51)
[2016-09-13] MEDS: PANTOprazole SOD 40 MG TAB PO SCH (07:52)
[2016-09-13] MEDS: HydrALAZINE HCL 20 MG/ML VIAL IV PRN ×2 (07:52→08:32)
[2016-09-13] MEDS ORDERED: DEXTROSE 50% 50 ML SYR IV PRN (08:00)
[2016-09-13] MEDS ORDERED: GLUCOSE 10 TABS/TUBE PO PRN (08:00)
[2016-09-13] MEDS ORDERED: NURSING VERBAL MED ORDER ONE ×3 (08:15→12:30)
[2016-09-13] MEDS ORDERED: LISINOPRIL 20 MG TAB PO ONE (08:30)
[2016-09-13] MEDS: METOPROLOL TARTRATE 25 MG TAB PO SCH ×3 (09:00→20:56)
[2016-09-13] MEDS ORDERED: LISINOPRIL 10 MG TAB PO SCH (09:00)
[2016-09-13] MEDS ORDERED: HydrALAZINE HCL 20 MG/ML VIAL IV. ONE (09:45)
[2016-09-13] MEDS: ONDANSETRON INJ 2 MG/ML 2 ML VIAL IV PRN (10:08)
--- NOTE | 2016-09-13 10:28 | CARDIOLOGY PROGRESS NOTE ---
DATE: 09/13/2016 SUBJECTIVE: The patient was seen by me this morning in her telemetry unit room. No further lightheadedness, nausea, or vomiting. No chest or arm pain. No dyspnea. No orthopnea or PND. No palpitations. She has fatigue this morning. She did not sleep much overnight. She also complains of being hungry. She is currently n.p.o. except what her meds for possible stress testing later today. No neurologic symptoms. The patient states that last night, she thought about the past several months in regards to symptoms. She thinks that approximately 7 months ago, she had an episode of feeling like she did yesterday morning. This occurred at night. She fell asleep with it. When she woke up, the symptoms have resolved. The nursing staff reports that her blood pressures have been elevated overnight. This morning, her blood pressure was 174/103. She has since received 2 doses of intravenous hydralazine 10 mg. She has also received an additional 20 mg of lisinopril in addition to her usual 20 mg. Despite this, her blood pressure remains elevated. MEDICATIONS: This morning, NovoLog sliding scale insulin, pantoprazole 40 mg daily, lisinopril 20 mg daily, metoprolol tartrate 25 mg b.i.d., hydralazine 10 mg IV q. 4 hours p.r.n. hypertension, p.r.n. IV metoprolol, and aspirin 81 mg daily. ALLERGIES AND ADVERSE DRUG REACTIONS: PENICILLIN. Monitor history shows no atrial fibrillation since admission to the telemetry unit. Sinus rhythm and sinus bradycardia. PHYSICAL EXAMINATION: VITAL SIGNS: This morning with oral temperature 36.7, pulse 75, and blood pressures 174/103, 194/88, 194/88, and 166/95. GENERAL APPEARANCE: Shows her to be lying in bed. No distress. NECK: No jugular venous distention. HEART: Regular rate and rhythm. S1 and S2 normal. No S3 or S4. No murmur or rub. LUNGS: Normal respiratory effort. Clear. No rales or wheezes. ABDOMEN: Soft. Nontender. No palpable masses or organomegaly. No bruits. EXTREMITIES: No pretibial edema. No calf tenderness. NEUROLOGIC: Alert and oriented x3. Motor grossly intact. PSYCHIATRIC: Affect is normal. LABORATORY DATA: Labs this morning with sodium 146, potassium 3.5, chloride 114, carbon dioxide 24, BUN 10, creatinine 0.82, and random glucose 107. Liver profile with triglycerides 112, total cholesterol 200, calculated LDL 131, and HDL 47. Troponin I is less than 0.015 on 3 determinations. CBC today with WBC 7.99, hemoglobin 13.3, hematocrit 42.3, and platelet count 109. Echocardiogram performed yesterday and interpreted by me showed normal LV systolic function and wall motion. LV ejection fraction 65%-70%. Moderate concentric LVH. LV diastolic dysfunction. Mild left atrial dilatation. Moderate LVH. Trace tricuspid and pulmonic regurgitation. ASSESSMENT: 1. Episode of paroxysmal atrial fibrillation with rapid ventricular response documented yesterday. The patient reports history this morning of feeling similar to yesterday approximately 7 months ago. The symptoms at that time were similar to those yesterday morning. Would have to consider the episode 7 months ago an episode of atrial fibrillation. Since admission, no further atrial fibrillation. 2. Cardiac enzymes negative for myocardial injury. 3. Echocardiogram with normal left ventricular wall motion and systolic function. She does have moderate left ventricular hypertrophy and left ventricular diastolic dysfunction. Mild left atrial dilatation. These findings would be consistent with uncontrolled hypertension. Hypertension and any structural changes in her heart could be predisposing factors to the atrial fibrillation. 4. Hypertension. Significantly elevated hypertension this morning. This has required intravenous hydralazine. She was given an additional 20 mg of lisinopril ordered by me. 5. Thrombocytopenia. This has been documented since at least 2011. No obvious etiology for it. No bleeding complaints. No skin manifestations of thrombocytopenia. 6. Dyslipidemia. Elevated LDL. Using the ASCVD risk calculator, her 10-year estimated ASCVD risk is 4%. The optimal risk factor is 0.7%. Lifetime risk 50%. The optimal risk factor is 8%. As a 10-year risk is less than 5%, based on these calculations she is not in a statin therapy benefit group. However,a modulating factor is a family history of premature coronary artery disease in a first-degree male relative. RECOMMENDATIONS: 1. Increase daily lisinopril to 40 mg daily. 2. Diltiazem CD 120 mg daily. 3. Await results of stress echo today. The stress echo is being delayed until her blood pressure comes under better control. 4. In light of her structural changes on echocardiography (LVH and left atrial dilatation) and her hypertension, she is predisposed to having further episodes of atrial fibrillation. By her history, she sounds like she had another episode approximately 7 months ago. With her elevated risk for yearly stroke with atrial fibrillation, would now recommend long-term anticoagulation therapy. With the diltiazem, she may have blunted ventricular response to any future episodes of atrial fibrillation. She may not be able to tell if she is having an episode. 5. In light of her family history of coronary artery disease and elevated LDL, would consider statin therapy. The above assessment and plan were discussed with the hospitalist team by me. Also discussed with the nursing staff by me. HUONG
[2016-09-13] MEDS ORDERED: INSULIN ASPART 100 UNITS/ML 3 ML PEN SC SCH (11:00)
[2016-09-13] MEDS: ACETAMINOPHEN 325 MG TAB PO PRN ×2 (12:35→16:45)
[2016-09-13] MEDS ORDERED: DILTIAZEM HCL 120 MG CAPCR PO STA (12:54)
[2016-09-14 03:35] VITALS: BP 129/76; PULSE 59; TEMP 36.2; O2SAT 95
[2016-09-14 07:00] VITALS: BP 147/89; PULSE 65; TEMP 37.2; O2SAT 95
[2016-09-14] MEDS: ASPIRIN 81 MG ECTAB PO SCH (08:40)
[2016-09-14] MEDS: PANTOprazole SOD 40 MG TAB PO SCH (08:40)
[2016-09-14] MEDS ORDERED: DILTIAZEM HCL 120 MG CAPCR PO SCH (09:00)
[2016-09-14] MEDS ORDERED: LISINOPRIL 40 MG TAB PO SCH (09:00)
--- NOTE | 2016-09-14 09:44 | PROGRESS NOTE ---
DATE: 09/14/2016 SUBJECTIVE: The patient was seen by me this morning in her telemetry unit room. She is feeling much better today compared to yesterday. Her nausea has resolved. She denies any palpitations. No lightheadedness. No chest pain or other anginal type pains. No orthopnea or PND overnight. No abdominal pain. No leg pain. No bleeding complaints. No neurologic complaints. MEDICATIONS: This morning were lisinopril 40 mg daily, metoprolol tartrate 25 mg b.i.d., pantoprazole 40 mg daily, aspirin 81 mg daily, p.r.n. IV hydralazine, p.r.n. IV metoprolol, p.r.n. Zofran, p.r.n. Maalox, and p.r.n. lorazepam. ALLERGIES AND ADVERSE DRUG REACTIONS: PENICILLINS. Monitor history over the past 24 hours reveals that yesterday morning at 10:36 a.m., she had approximately 2.5-second episode of atrial fibrillation with rapid ventricular response. Otherwise, her rhythm has been sinus rhythm and sinus bradycardia. OBJECTIVE: VITAL SIGNS: At 03:35 a.m. this morning, oral temperature 36.2, pulse 59, blood pressure 129/76, and pulse oximetry 95%. At 07:00 a.m., pulse 65 and blood pressure 147/89. GENERAL APPEARANCE: Shows her to be in no distress. She is sitting in a chair by her bedside. NECK: No jugular venous distention. LUNGS: Normal respiratory effort. Clear. No rales or wheezes. HEART: Regular rate and rhythm. S1 and S2 normal. No S3 or S4. No murmur or rub. ABDOMEN: Soft. Nontender. No palpable masses or organomegaly. No bruits. EXTREMITIES: No pretibial edema. No calf tenderness. NEUROLOGIC: Alert and oriented x3. Motor grossly intact. PSYCHIATRIC: Affect is normal. LABORATORY DATA: No new labs today. ASSESSMENT: 1. Paroxysmal atrial fibrillation. Documented episode with rapid ventricular response at the time of admission. A brief episode of nonsustained atrial fibrillation yesterday morning. By her history, she may have had an episode approximately 7 months ago lasting approximately 4 hours. 2. Hypertension. Blood pressure under better control today than yesterday. 3. Echocardiogram with normal systolic function. She does have left ventricular hypertrophy, mild left atrial dilatation, and left ventricular diastolic dysfunction. These are findings seen with uncontrolled hypertension. 4. No complaints of chest pain during this admission. Last week as an outpatient, she did have an episode of chest discomfort, radiating into her left upper arm. This occurred at rest. She has had no further such symptoms. Her electrocardiogram with the rapid ventricular response to the atrial fibrillation showed ST segment depressions. These depressions may have been secondary to secondary repolarization abnormalities from left ventricular hypertrophy. Cardiac enzymes were negative following admission. 5. Her ____ score is 2. This places her at a yearly risk of stroke of 2.2%. The recommendation with this is oral anticoagulation. This was extensively discussed with the patient. The indications, benefits, risks, and alternatives of oral anticoagulation were discussed with her. She is agreeable to starting on long-term oral anticoagulation therapy for paroxysmal atrial fibrillation. PLAN: 1. Start Xarelto 20 mg daily. 2. Diltiazem 120 mg daily. The dose can be titrated upwards as an outpatient to achieve blood pressure control if necessary. 3. Continue lisinopril 40 mg daily. 4. We will discontinue metoprolol. We will use the diltiazem for ventricular rate control. She has low resting heart rate. Her last dose of metoprolol was yesterday. 5. We will discontinue aspirin as the Xarelto is being started. This will help decrease the bleeding risk. 6. Stress echocardiogram today. Await results. If there is evidence of any significant myocardial ischemia, then would recommend cardiac catheterization procedure. 7. The patient will have cardiology followup visit with me as an outpatient. Please arrange a visit through the nurse navigator. If my schedule is full, she could be seen in followup by Mr. Prudencio Lewis or Ms. Leonor Douglas. These are the physician's assistants in the [facility]. The above assessment and plan were extensively discussed with the patient. She is in full agreement with the plan.
[2016-09-14] MEDS ORDERED: RIVAROXABAN 20 MG TAB PO SCH (11:00)
--- NOTE | 2016-09-14 11:06 | Discharge Instructions ---
Discharge Instructions Date of Service Sep 14, 2016. Admission Reason for Admission: Dizzy, Vomiting, Chills/Sweats Discharge Discharge Diagnosis / Problem: Atrial fibrillation with RVR Discharge Goals Goal(s): Decrease discomfort, Improve function Activity Recommendations Activity Limitations: resume your previous activity Lifting Limitations: no more than 25 pounds, gradually increase as tolerated Exercise/Sports Limitations: gradually increase as tolerated May Resume Sexual Activity: when tolerated Shower/Bathe: no limitations Driving or Machine Use: no limitations . Instructions / Follow-Up Instructions / Follow-Up You were admitted to [facility] with dizziness, vomiting, chills and sweats and diagnosed with atrial fibrillation with RVR. - During your stay here you were treated with rate control medications, anticoagulation. - Imaging studies which were completed include stress echo, and were normal. Medication Changes Start Xarelto 20 mg daily. Continue Diltiazem 120 mg daily. The dose can be titrated upwards as an outpatient to achieve blood pressure control if necessary. Continue lisinopril 40 mg daily. -discontinue metoprolol Follow up with your Primary Care Provider within 1 week. Follow up with cardiology within 2 weeks. Current Hospital Diet Patient's current hospital diet: Regular Diet Discharge Diet Recommended Diet: AHA Diet (Heart Healthy) Procedures Procedures Performed: Stress Echocardiogram 09/14/16 Pending Studies Studies pending at discharge: no Laboratory Results Hemoglobin A1c Test 09/12/16 09:16 Range/Units Estimated Average Glucose 100 mg/dl Hemoglobin A1c 5.1 4.5-5.6 % Lipid Panel Test 09/13/16 05:30 Range/Units Triglycerides Level 112 0-150 mg/dl Cholesterol Level 200 0-200 mg/dl HDL Cholesterol 47 mg/dl Cholesterol/HDL Ratio 4.3 LDL Cholesterol, Calculated 131 mg/dl Medical Emergencies . Who to Call and When: Medical Emergencies: If at any time you feel your situation is an emergency, please call 911 immediately. . Non-Emergent Contact Non-Emergency issues call your: Primary Care Provider Call Non-Emergent contact if: you have a fever, you have any medication questions palpitations, flutter, lightheadedness, dizziness, nausea, vomiting, diarrhea or constipation. Call 911 or report to the Emergency Department if you develop chest pain, chest tightness, shortness of breath or have other concerns regarding your health. . Past History Medical & Surgical History: (1) Atrial fibrillation with RVR (2) Hypertension . "Provider Documentation" section prepared by Laura Harding. VTE Core Measure Inpt VTE Proph given/why not?: Other Anticoagulation, T.E.D. Stockings, SCD's
[2016-09-14] MEDS ORDERED: DILT120C50 PO (11:10)
[2016-09-14] MEDS ORDERED: LSN40 PO (11:10)
[2016-09-14] MEDS ORDERED: XRL20 PO (11:10)
--- NOTE | 2016-09-14 11:17 | EXERCISE STRESS ECHO ---
*NOTICE TO RECEIVING DEMOCRAT AGENCY This information is strictly Confidential and protected under [place] law. [place] law prohibits you from making any further disclosure of this information unless further disclosure is expressly permitted by the written consent of the person to whom it pertains or is authorized by law. A general authorization for the release of medical or other information is not sufficient for this purpose. Hospital accepts no responsibility if the information is made available to any other person, INCLUDING THE PATIENT. Interpretation Summary * Name: NETTE ARREGUIN Study Date: 09/14/2016 08:41 AM BP: 163/98 mmHg * Patient Location: .2E\S\E207\S\1 HR: 61 * : 1965 (M/d/yyyy) Gender: Female Height: 68 in * Age: 50 yrs Ethnicity: CA Weight: 282 lb * Ordering Physician: Kenn Bryan * Referring Physician: INGRID * Performed By: Fransisca Suggs RDCS * * Reason For Study: CHEST PAIN * BSA: 2.4 m2 * History: CHEST PAIN * -- Conclusions -- * Normal stress echocardiogram at 10.1 METS and a peak heart rate of 85% maximum predicted. * No exercise induced chest pain. * No ECG changes. * Baseline echocardiogram notes normal left ventricular systolic function without wall motion abnormalities. Procedure Details * ECHOEX, CPT #[id number] Left Ventricle * Left ventricular systolic function is normal. * Resting wall motion: Normal. Stress wall motion: Appropriate increase in Left ventricular systolic function and decrease in cavity size. No stress induced segmental wall motion abnormalities. Stress Parameters * Normal baseline electrocardiogram. * Stress ECG: No ST changes. No arrhythmias. * The stress portion of this study was personally supervised by the undersigned interpreting physician. * Rest heart rate was '61' BPM. * Rest blood pressure was '163/98' * Maximum heart rate achieved was 142 bpm. * Maximum heart rate was 82 % of maximum age-predicted heart rate. * Maximum blood pressure was '199/85' * Total exercise time was '9:00' * Maximum exercise MET level achieved was '10.10' METS * Maximum treadmill speed was '3.40' miles per hour. * Maximum treadmill elevation was '14.00'% grade. * Exercise was terminated due to 'ACHIEVING TARGET HR'
[2016-09-14 11:32] VITALS: BP 151/81; PULSE 63; TEMP 36.9; O2SAT 96
[2016-09-14 12:11] VITALS: BP 151/81; PULSE 63; TEMP 36.9; O2SAT 96
--- NOTE | 2016-09-14 12:29 | Discharge Summary ---
Discharge Summary Date of Service Sep 14, 2016. Discharge Summary Admission Date: Sep 12, 2016 at 10:32 Discharge Date: Sep 14, 2016 Discharge Disposition: Home Principal Diagnosis: atrial fibrillation with RVR Problems/Secondary Diagnoses: Obesity, hypertension, hyperlipidemia, [place] disease, paroxysmal A. fib with RVR Immunizations: Have You Had Influenza Vaccine: Yes Influenza Vaccine Date: Apr 26, 2011 History of Tetanus Vaccine?: Unknown History of Pneumococcal: Unknown History of Hepatitis B Vaccine: Unknown Procedures: Echocardiogram 09/14/16 * -- Conclusions -- * Normal stress echocardiogram at 10.1 METS and a peak heart rate of 85% maximum predicted. * No exercise induced chest pain. * No ECG changes. * Baseline echocardiogram notes normal left ventricular systolic function without wall motion abnormalities. Chest 1 view 09/12/16 IMPRESSION: Negative chest. Consultations: Cardiology Medication Reconciliation New Medications: Diltiazem HCl (Diltiazem Cd) 120 Mg Capcr 120 MG PO QAM for 30 Days, #30 DOSE Lisinopril (Lisinopril) 40 Mg Tab 40 MG PO QAM for 30 Days, #30 TAB Rivaroxaban (Xarelto) 20 Mg Tab 20 MG PO DAILY for 30 Days, #30 TAB Continued Medications: Oxycodone/Acetaminophen 5MG/325MG (Percocet 5MG/325MG) Tab 1 - 2 TAB PO Q4-6HR PRN PRN, #20 0 Refills Pantoprazole (Protonix) 40 Mg Tab 40 MG PO DAILY, #30 0 Refills Discontinued Medications: Lisinopril/Hctz (Prinzide 20-25MG) Tab 1 TAB PO DAILY, 0 Refills Discharge Exam The patient was seen and examined this morning. Patient reports feeling well. Her mother is present at bedside. Stress echocardiogram completed this morning which was normal. Reports getting adequate sleep overnight, denies any lightheadedness, dizziness, palpitation, flutter, chest tightness, shortness of breath. She has been ambulating without difficulty around the room and hallway. Discussion was held about starting Cardizem, lisinopril and Xarelto- all questions and concerns were addressed. 10 point review of systems was reviewed and otherwise negative Physical Exam: General Appearance: WD/WN, no apparent distress, + obese Eyes: PERRL, EOMI ENT: hearing grossly normal, pharynx normal Neck: supple, no JVD Respiratory/Chest: lungs clear, no respiratory distress, no accessory muscle use Cardiovascular: regular rate, rhythm, no murmur Abdomen / GI: normal bowel sounds, non tender, soft Extremities: normal inspection, no calf tenderness, no pedal edema Neurologic/Psychiatric: alert, oriented x 3 Skin: normal color, warm/dry Hospital Course H&P per Dr. Fe MD. HISTORY OF PRESENT ILLNESS: Ms. Nick is a 50-year-old female presented with episodes of dizziness while driving from dropping her son off to her work. She typically works at [employer] in [place]. The patient has stopped twice on the way to work because she felt too dizzy to drive. When her picked her up, she felt nauseous and almost threw up in the back seat of the car. When the patient arrived in the ER, she was in atrial fibrillation and RVR. Initially it was a narrow complex tachyarrhythmia and adenosine was administered. This did not seem to quell the arrhythmia and she was given diltiazem bolus of 40 reporting to the ER doctor, which converted her back to sinus rhythm. Her initial evaluation, she was found to be hypokalemic with potassium of 2.7 and magnesium is currently pending. She was not hyperthyroid. She has elevated bilirubin but a history of Gilbert's and she has an elevated glucose 185. The patient denies excessive stimulant use. Does not take any over the counter medicines except for Ocuvite and glutamine. She denies any drug use. She is on a combination antihypertensive diuretic which may explain her hyperkalemia. She is amenable to admission. She currently is without discomfort in sinus rhythm in the 60s and 70s, although she has some residual lateral T-wave inversions seen on her EKG after conversion to sinus rhythm. PHYSICAL EXAMINATION: GENERAL: She is a pleasant female. She is morbidly obese with a BMI of 42.9. HEAD, EYES, EARS, NOSE, AND THROAT: PERRL, EOMI. Her conjunctivae are not icteric. Oropharynx is clear. NECK: Without lymphadenopathy, JVD. Trachea midline. HEART: Regular without murmurs, clicks, rubs or gallops. LUNGS: Clear without wheezes or crackles. ABDOMEN: Normoactive bowel sounds, soft, nontender, no abdominal bruits. EXTREMITIES: Without cyanosis, clubbing or edema. SKIN EXAMINATION: Without lesions, growths, bruises or bleeding. NEUROLOGICALLY: She is awake, alert and appropriate. Cranial nerves II-XII are intact. Equal symmetrical strength and sensation in upper and lower extremities. VITAL SIGNS: Her temperature is 36.5. Her heart rate now is 66. Her respiration rate 18, BP is elevated at 185/141, O2 sats 97 on room air. Hospital course This is a 50 yo F with PMHx HTN, gilberts disease, obesity, presenting after episode of dizziness and vomiting presenting in new onset afib with RVR. The patient was seen by cardiology and was started on Cardizem 120 mg daily, Lisinopril 40 mg daily, Xarelto 20 mg daily. Stress Echocardiogram was completed on 09/14/16 and was normal. Follow up with cardiology within 2 weeks. Atrial Fibrillation with RVR - Adenosine and diltiazem administered in the ED upon arrival with conversion back into NSR. - Cardiology consulted - appreciate recs - metoprolol 25 mg BID will be discontinued as the patient is rate controlled - Start Cardizem 120 mg daily, lisinopril 40 mg daily, Xarelto 20 mg daily per cardiology - Cardiac markers x 3 are normal - Stress echocardiogram 09/14/16 was completed and is normal, - TTE completed 09/13 showing LVH, right atrial enlargement. - Lipids mildly elevated, LDL is elevated, and HDL is low although her total cholesterol is borderline - is not within benefit group for statin therapy so it was not started during this admission, discussed with cardiology. - A1C = 5.1 Hypokalemia - resolved - Stop HCTZ as this may have precipitated some fluid loss, and certainly hypokalemia with admission being 2.7. [place] Syndrome - Chronic Obesity, morbid. BMI 42.2 - Discussion regarding diet and exercise was held with the patient and her mother at bedside. DVT ppx: OOB Disposition: From home, discharged to home today Total Time Spent: Greater than 30 minutes This includes examination of the patient, discharge planning, medication reconciliation, and communication with other providers. Discharge Instructions Please refer to the electronic Patient Visit Report (Discharge Instructions) for additional information. Follow-Up Follow up with your Primary Care Provider within 1 week. Follow-up with cardiology within 2 weeks. Additional Copies To Jeannette Parks D.O.
== END 2016-09-14 12:15 | disposition home or self-care (01) | DRG 309 ==
LOC: ENRESERVTM → ENRESERVDT → C.EDB 08:50 → C.2E 10:32
PROVIDERS: ADMIT Internal Medicine; ATTEND Internal Medicine
DX: I48.0 Paroxysmal atrial fibrillation (principal); Z68.41 Body mass index [BMI] 40.0-44.9, adult; E87.6 Hypokalemia; T50.2X5A Adverse effect of carbonic-anhydrase inhibitors, benzothiadiazides and other diuretics, initial encounter; R07.9 Chest pain, unspecified; R11.0 Nausea; R73.9 Hyperglycemia, unspecified; D69.6 Thrombocytopenia, unspecified; I10 Essential (primary) hypertension; E78.5 Hyperlipidemia, unspecified; K21.9 Gastro-esophageal reflux disease without esophagitis; E80.4 Gilbert syndrome; K76.0 Fatty (change of) liver, not elsewhere classified; E66.01 Morbid (severe) obesity due to excess calories; Z87.891 Personal history of nicotine dependence; Z82.49 Family history of ischemic heart disease and other diseases of the circulatory system; Z79.899 Other long term (current) drug therapy; Z79.891 Long term (current) use of opiate analgesic

== ENCOUNTER → 2016-09-25 | Outpatient (CLI) | payer BC ==
[~2016-09-25] MED LIST changes: +APIX1TAB3 PO; +DILT120C50 PO; -LISI20TA55 PO; +LISI40TA PO; +LORA-741 PO; +LSN40 PO; +METO50TA7 PO; +XRL20 PO
[2016-09-25 12:14] LABS: BASO % 0.6 %; BASO ABS # 0.03 K/uL (0-0.2); COMPLETE YES; EOS % 2.6 %; HEMATOCRIT 41.8 % (37-47); IG% 0.8 %; LYMPH % 35.2 %; LYMPH ABS # 1.86 K/uL (1.2-3.4); MEAN CELL VOLUME 88.7 fL (80-100); MEAN CORPUSCULAR HEMOGLOBIN 31.4 pg (25-34); MEAN CORPUSCULAR HGB CONC 35.4 g/dl (32-36); MEAN PLATELET VOLUME 11.1 fL (7.4-10.4); MONO % 5.3 %; NEUT % 55.5 %; PLATELET COUNT 108 K/uL (130-400); RED BLOOD COUNT 4.71 M/uL (4.2-5.4); WHITE BLOOD COUNT 5.29 K/uL (4.8-10.8)
[2016-09-25 14:17] LABS: BLOOD UREA NITROGEN 9 mg/dl (7-18); BUN/CREATININE RATIO 9.7 (10-20); CALCIUM 8.7 mg/dl (8.5-10.1); CARBON DIOXIDE 25 mmol/L (21-32); CHLORIDE 111 mmol/L (98-107); GLUCOSE 111 mg/dl (70-99); POTASSIUM 3.5 mmol/L (3.5-5.1); SODIUM 145 mmol/L (136-145)
[2016-09-25 14:30] LABS: ALB/GLOB RATIO 1.6 (0.9-2); ALKALINE PHOSPHATASE 38 U/L (45-117); ALT/SGPT 29 U/L (12-78); AST/SGOT 18 U/L (15-37); BLOOD UREA NITROGEN 9 mg/dl (7-18); BUN/CREATININE RATIO 10.2 (10-20); CALCIUM 8.6 mg/dl (8.5-10.1); CARBON DIOXIDE 26 mmol/L (21-32); CHLORIDE 111 mmol/L (98-107); CREATININE 0.89 mg/dl (0.60-1.20); GLUCOSE 109 mg/dl (70-99); POTASSIUM 3.5 mmol/L (3.5-5.1); SODIUM 144 mmol/L (136-145)
== END | disposition home or self-care (01) ==
LOC: C.LAB1850 09:54
PROVIDERS: ATTEND Nurse Practitioner Family
DX: I48.91 Unspecified atrial fibrillation (principal); R89.9 Unspecified abnormal finding in specimens from other organs, systems and tissues

== ENCOUNTER → 2016-10-29 | Outpatient (CLI) | payer BC ==
--- NOTE | 2016-10-30 07:56 | MAMMOGRAPHY REPORT ---
BILATERAL DIGITAL DIAGNOSTIC MAMMOGRAM TOMOSYNTHESIS WITH CAD AND TARGETED RIGHT ULTRASOUND: 10/30/19 17 CLINICAL HISTORY: 50-year-old woman with palpable lump in the upper outer quadrant of the right [address]. Also due for annual bilateral screening exam. TECHNIQUE: Bilateral breast tomosynthesis in addition to standard 2D mammography was performed. Curr ent study was also evaluated with a Computer Aided Detection (CAD) system. COMPARISON: Comparison is made to exams dated: 08/10/2015 mammogram, 03/03/2014 mammogram, 02/27/2012 ammogram - [facility], and 03/04/2007. BREAST COMPOSITION: There are scattered areas of fibroglandular density in both breasts. FINDINGS: A triangular skin marker overlies the upper outer middle one third of the right breast. T here are a few stable scattered and grouped benign-appearing punctate microcalcifications in the katy asts. No new suspicious mass, architectural distortion or cluster of microcalcifications is seen bi laterally, with particular attention to the area of new palpable concern. Targeted ultrasound was performed in the area of palpable lump pointed out by the patient (within th e 10:00 right breast, 2 cm from the nipple). Sonographically normal tissue is seen without a discre te solid or cystic mass. IMPRESSION: ACR BI-RADS CATEGORY 2: BENIGN, TARGETED ULTRASOUND ACR BI-RADS CATEGORY 2: BENIGN 1. Stable bilateral mammograms, without mammographic or targeted sonographic evidence of malignancy . 2. Clinical follow-up is recommended, as biopsy of a clinically suspicious mass should not be precl uded by negative imaging. 3. Otherwise, recommend routine mammography in one year. These results and recommendations were discussed with the patient at the time of the exam. Approximately 10% of breast cancers are not detected with mammography. A negative mammographic repor t should not delay biopsy if a clinically suggestive mass is present. Leonor Guzman M.D. ay/:10/29/2016 15:37:17 [employer] Operator: Meghan Gutierrez, [facility] letter sent: Normal 1/2 BI-RADS Code: ACR BI-RADS Category 2: Benign Ultrasound BI-RADS: ACR BI-RADS Category 2: Benign
== END | disposition home or self-care (01) ==
LOC: C.MAMM 09:08
PROVIDERS: ATTEND Family Medicine
DX: N63 Unspecified lump in breast (principal)

== ENCOUNTER → 2016-12-28 | Outpatient (CLI) | payer BC ==
[~2016-12-28] MED LIST changes: +CRDCD120 PO; -DILT120C50 PO
[2016-12-28 17:49] LABS: BLOOD UREA NITROGEN 15 mg/dl (7-18); BUN/CREATININE RATIO 15.3 (10-20); CARBON DIOXIDE 27 mmol/L (21-32); CHLORIDE 109 mmol/L (98-107); GLUCOSE 107 mg/dl (70-99); POTASSIUM 3.3 mmol/L (3.5-5.1); SODIUM 143 mmol/L (136-145)
== END | disposition home or self-care (01) ==
LOC: C.LAB1850 15:59
PROVIDERS: ATTEND Physician Assistant
DX: I10 Essential (primary) hypertension (principal)

== ENCOUNTER 2017-01-24 09:08 | Emergency (ER) | payer BC, OTHER ==
[~2017-01-24] VITALS: Ht 172.7 cm; Wt 129.4 kg
[~2017-01-24 09:08] MED LIST changes: -APIX1TAB3 PO; -LISI40TA PO; -LORA-741 PO; -METO50TA7 PO
[2017-01-24 09:16] VITALS: TEMP 36.6; Ht 172.7 cm; Wt 129.4 kg
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
[2017-01-24] MEDS ORDERED: APIX1TAB3 PO (10:40)
[2017-01-24] MEDS ORDERED: LORA-741 PO (10:40)
[2017-01-24] MEDS ORDERED: LISI40TA PO (10:40)
[2017-01-24] MEDS ORDERED: METO50TA7 PO (10:40)
[2017-01-24] MEDS ORDERED: PANT40TA PO (10:40)
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
[2017-01-24 11:39] VITALS: BP 171/97; PULSE 74; O2SAT 98
== END 2017-01-24 11:39 | disposition home or self-care (01) ==
LOC: C.EDB 09:09
DX: M54.2 Cervicalgia (principal); V89.2XXA Person injured in unspecified motor-vehicle accident, traffic, initial encounter; R51 Headache; M25.519 Pain in unspecified shoulder; I48.91 Unspecified atrial fibrillation; E04.2 Nontoxic multinodular goiter; Z79.01 Long term (current) use of anticoagulants; Z90.710 Acquired absence of both cervix and uterus; Z90.722 Acquired absence of ovaries, bilateral; Z87.891 Personal history of nicotine dependence; Z83.3 Family history of diabetes mellitus; Z82.49 Family history of ischemic heart disease and other diseases of the circulatory system

== ENCOUNTER → 2017-02-07 | Outpatient (CLI) | payer BC ==
[~2017-02-07] MED LIST changes: +APIX1TAB3 PO; -CRDCD120 PO; +LISI40TA PO; +LORA-741 PO; -LSN40 PO; +METO50TA7 PO; -OXYC-57 PO; -XRL20 PO
--- NOTE | 2017-02-07 13:12 | DIAGNOSTIC IMAGING REPORT ---
THYROID ULTRASOUND CLINICAL HISTORY: Multinodular thyroid gland on CT scan. COMPARISON STUDY: Cervical spine CT January 24, 2017. TECHNIQUE: Sonography of the thyroid gland was performed. FINDINGS: The right thyroid lobe measures 5.6 x 2.5 x 2.1 cm and the left lobe measures 5.3 x 1.9 x 1.7 cm. Multiple thyroid nodules are present, as shown on prior CT. The largest right lobe nodule is a 1.6 x 1.2 x 1.2 cm hypoechoic midpole nodule. Within the left isthmus junction/lower pole of the left thyroid lobe, there is a 2.2 x 1.6 x 2.1 cm echogenic nodule. This nodule is solid. IMPRESSION: Multinodular thyroid gland. Ultrasound-guided fine needle aspiration of the 1.6 cm hypoechoic right midpole nodule and the 2.2 cm left isthmus junction/left lower pole thyroid nodule is recommended based on size criteria. Electronically signed by: Aj Nguyễn M.D. 02/07/2017 1:11 PM Dictated Date/Time: 02/07/2017 1:05 PM
== END | disposition home or self-care (01) ==
LOC: C.ULTR 12:31
PROVIDERS: ATTEND Family Medicine
DX: E04.2 Nontoxic multinodular goiter (principal)

== ENCOUNTER → 2017-07-08 | Outpatient (CLI) | payer OTHER ==
--- NOTE | 2017-07-08 09:10 | DIAGNOSTIC IMAGING REPORT ---
ABDOMINAL ULTRASOUND, RIGHT UPPER QUADRANT HISTORY: Abdominal pain. COMPARISON: CT of the abdomen and pelvis July 06, 2011 and right upper quadrant ultrasound November 09, 2014. FINDINGS: Increased hepatic echogenicity is consistent with fatty infiltration. No hepatic lesions are identified. No gallstones are identified. A few small gallbladder polyps measuring up to 5 mm are similar to exam of November 09, 2014. The pancreatic body is normal. The pancreatic head and tail are partially obscured. There is no right hydronephrosis. There is no biliary ductal dilatation. Common bile duct measures 4 mm in caliber. IMPRESSION: 1. No gallstones or biliary ductal dilatation. No gallbladder wall thickening. 2. A few small gallbladder polyps. 3. Fatty infiltration of the liver. Electronically signed by: Aj Nguyễn M.D. 07/08/2017 9:08 AM Dictated Date/Time: 07/08/2017 9:06 AM
== END | disposition home or self-care (01) ==
LOC: C.ULTR 08:09
PROVIDERS: ATTEND Family Medicine
DX: R19.8 Other specified symptoms and signs involving the digestive system and abdomen (principal); K82.4 Cholesterolosis of gallbladder; K76.0 Fatty (change of) liver, not elsewhere classified